=== PATIENT | female | born 1960 | race Caucasian/White ===

== ENCOUNTER → 2025-07-28 | Outpatient (CLI) | payer MEDICAID ==
[~2025-07-28] MED LIST: LIDOcaine 1% 30ml preserv. free vial ONE; LIDOcaine 1%/PF 5ML 10 MG/ML VIAL ONE; iohexol 300 MG/1 ML 50ml polymer ONE
--- NOTE | 2025-07-28 09:09 | RADIOLOGY REPORT ---
ANGIO ARTHROGRAM (A) Date: 07/28/2025 07:33 AM Clinical History: PAIN IN RIGHT SHOULDER Comparison: None Procedure: Verbal and written informed consent were obtained from the patient for the procedure of right shoulde r joint fluoroscopically guided arthrogram, after the procedure, risks, and benefits of the procedur e were explained to the patient. Risks include bleeding, infection, reaction to injected medications , and damage to surrounding anatomic structures. The patient's questions were answered. The patient 's most recent medical history was reviewed. A time out was performed to verify the patient's name, date of , and correct location of the pro cedure, prior to initiation of the procedure. The patient was placed supine on the fluoroscopic table and the area overlying the right shoulder del nt was prepped and draped in the usual sterile fashion. The patient tolerated the procedure well. There were no immediate complications. Home-care instruct ions were reviewed with the patient prior to the patient's discharge from the fluoroscopy suite. The patient verbally affirmed understanding of these instructions. Impression: Technically successful fluoroscopically guided rigth shoulder joint arthrogram. The patient was antony sported to MRI for further imaging at the completion of the procedure.
--- NOTE | 2025-07-28 09:19 | RADIOLOGY REPORT ---
CLINICAL INFORMATION: 65 years old, Female; RT SHOULDER PAIN. TECHNIQUE: Axial CT arthrogram images of the right shoulder were obtained after the uneventful intra- articular injection of a CT contrast mixture under fluoroscopic guidance. Refer to the separately dic tated arthrogram injection report for details concerning the arthrogram injection. Coronal and sagitt al reformatted images were obtained, reviewed, and stored. All CT scans at this medical facility are performed using dose modulation techniques as appropriate to a performed exam including the followin g: Automated exposure control was utilized; adjustment of the MA and/or KV according to patient size; and use of iterative reconstruction technique. CTDIvol = 29.06 mGy DLP = 625.28 mGy-cm COMPARISON: ANGIO ARTHROGRAM (A) on DOS: 07/28/25 FINDINGS: The coronal and sagittal reformatted images are not aligned along the plane of the scapula, limiting evaluation. 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 There are f ull-thickness tears involving the supraspinatus and infraspinatus tendons from their insertional foot prints, with retraction of torn tendon fibers to the level of the glenohumeral joint. There are some intact posterior fibers of the infraspinatus tendon at the greater tuberosity. There is full-thicknes s tear involving the subscapularis tendon from its insertion, with retraction of torn tendon fibers n ear the level of the glenohumeral joint. Long head biceps tendon appears intact. No labral tear ident ified. There is adequate distention of the joint with contrast. No synovitis or loose bodies visualiz ed. No significant fatty atrophy identified in the rotator cuff musculature. Small right axillary lym ph nodes with normal reniform shape and fatty flor, likely reactive lymph nodes. IMPRESSION: 1. Coronal and sagittal reformatted images are not aligned along the plane of the scapula, limiting e valuation. 2. Full-thickness tears of the supraspinatus, infraspinatus, and subscapularis tendons as described carlos rodriges.
== END | disposition home or self-care (01) ==
LOC: RAD 06:13
PROVIDERS: ATTEND Pediatrics Sports Medicine
DX: M75.01 Adhesive capsulitis of right shoulder (principal); M75.121 Complete rotator cuff tear or rupture of right shoulder, not specified as traumatic; M25.511 Pain in right shoulder; Z87.891 Personal history of nicotine dependence; Z79.1 Long term (current) use of non-steroidal anti-inflammatories (NSAID); Z79.899 Other long term (current) drug therapy
CPT/HCPCS: 23350; 73201; 77002; J2003; J3490; Q9967